=== PATIENT | female | born 1955 | race Caucasian/White ===

== ENCOUNTER → 2016-06-12 | Outpatient (CLI) | payer BC ==
--- NOTE | 2016-06-13 07:17 | US ---
EXAMINATION TYPE: US thyroid st tissue head/neck DATE OF EXAM: 06/12/2016 4:16 PM COMPARISON: US 2012 CLINICAL HISTORY: Thyroid nodules; on thyroid medication. GLAND SIZE: Right Lobe: 4.8 x 1.2 x 1.1cm Overall Parenchyma: heterogenous Left Lobe: 5.2 x 2.7 x 1.8cm Overall Parenchyma: heterogeneous Isthmus Thickness: 0.8cm NODULES RIGHT: # of nodules measured on right: 4 1. 1.1 x 0.7 x 0.7 cm isoechoic mixed nodule at the upper pole with poorly defined margins. This n odule is wider than tall and shows no intranodular vascularity. Prior size: 0.8 x 0.6 x 0.6 cm 2. 1.0 x 0.8 x 0.7 cm isoechoic mixed nodule at the mid pole with well-defined margins. This nodule is wider than tall and shows intranodular vascularity. Prior size: 0.9 x 0.6 x 0.7 cm 3. 1.0 x 0.5 x 0.5 cm hypoechoic mixed nodule at the mid lower pole with well-defined margins. This nodule is as wide as is tall and shows intranodular vascularity. Prior size: 0.7 x 0.4 x 0.7 cm 4. 0.8 x 0.9 x 0.4cm isoechoic mixed nodule at the right isthmus with well-defined margins. This nod ule is wider than tall and shows intranodular vascularity. Prior size: 0.7 x 0.4 x 0.7 cm LEFT: # of nodules measured on left: 3 largest of multiple 1. 1.7 x 1.5 x 1.5 cm hypoechoic mixed nodule at the upper pole with well-defined margins. This nod ule is wide as is tall and shows no intranodular vascularity. Prior size: 1.1 x 0.8 x 1.2 cm 2. 1.0 x 0.8 x 0.6 cm hypoechoic mixed nodule at the mid pole with well-defined margins. This nodule is wider than tall and shows no intranodular vascularity. Prior size: 0.8 x 0.5 x 0.8 cm 3. 1.3 x 1.11 x 1.09 cm hypoechoic mixed nodule at the lower pole with well-defined margins. This nod ule is wider than tall and shows no intranodular vascularity. Prior size: 01.3 x 1.1 x 1.0 cm ISTHMUS: # of nodules measured in the isthmus: 0 TECHNOLOGIST IMPRESSION: Bilateral neck scanned, no abnormal lymphadenopathy noted. Bilateral thyroi d nodules are present. IMPRESSION: Nonspecific thyroid nodularity as detailed above. SONOGRAPHIC PATTERNS, ESTIMATED MALIGNANCY RISK AND FNA GUIDANCE FOR THYROID NODULES Sonographic Pattern: Benign Ultrasound Features: Purely Cystic Nodules (No Solid Component) Estimated Risk Of Malignancy, %: <1 FNA Size Cutoff (Largest Dimension): No Biopsy Sonographic Pattern: Very Low Suspicion Ultrasound Features: Spongiform Or Partially Cystic Nodules Without Any Of The Sonographic Features Described In Low, Inte rmediate Or High Suspicion Patterns. Estimated Risk Of Malignancy, %: <3 FNA Size Cutoff (Largest Dimension): Recommend FNA At > 2cm Or Observation Without FNA Sonographic Pattern: Low Suspicion Ultrasound Features: Isoechoic Or Hyperechoic Solid Nodule, Or Partially Cystic Nodule With Eccentric Solid Areas, Without Microcalcification, Irregular Margin Or Ete, Or Taller Than Wide Shape. Estimated Risk Of Malignancy, %: 5-10 FNA Size Cutoff (Largest Dimension): Recommend FNA At > 1.5cm Sonographic Pattern: Intermediate Suspicion Ultrasound Features: Hypoechoic Solid Nodule With Smooth Margins Without Microcalcifications, Ete, Or Taller Than Wide Sha pe. Estimated Risk Of Malignancy, %: 10-20 FNA Size Cutoff (Largest Dimension): Recommend FNA At > 1cm Sonographic Pattern: High Suspicion Ultrasound Features: Solid Hypoechoic Nodule Or Solid Hypoechoic Component Of A Partially Cystic Nodule With One Or More O f The Following Features: Irregular Margins (Infiltrative, Microlobulated), Microcalcifications, Tall er Than Wide Shape, Rim Calcifications With Small Extrusive Soft Tissue Component, Evidence Of Ete Estimated Risk Of Malignancy, %: >70-90 FNA Size Cutoff (Largest Dimension): Recommend FNA At > 1cm
== END | disposition home or self-care (01) ==
LOC: RADUSWWP 15:40
PROVIDERS: ATTEND Otolaryngology
DX: E04.1 Nontoxic single thyroid nodule (principal)
CPT/HCPCS: 76536

== ENCOUNTER → 2016-11-28 | Outpatient (CLI) | payer BC ==
--- NOTE | 2016-11-29 12:59 | MM ---
Reason for exam: screening (asymptomatic). Last mammogram was performed 1 year ago. Physical Findings: A clinical breast exam by your physician is recommended on an annual basis and results should be correlated with mammographic findings. MG 3D Screening Mammo W/Cad Bilateral CC and MLO view(s) were taken. Prior study comparison: November 15, 2015, bilateral MG 3d screening mammo w/cad. November 12, 2006, workup left diagnostic mammogram. The breast tissue is heterogeneously dense. This may lower the sensitivity of mammography. Finding: There are few typically benign round, linear calcifications in the right breast. ASSESSMENT: Benign, BI-RAD 2 RECOMMENDATION: Routine screening mammogram of both breasts in 1 year.
== END | disposition home or self-care (01) ==
LOC: RADMAMWWP 09:08
PROVIDERS: ATTEND Internal Medicine Geriatric Medicine
DX: Z12.31 Encounter for screening mammogram for malignant neoplasm of breast (principal)
CPT/HCPCS: 77063; G0202

== ENCOUNTER → 2017-09-01 | Outpatient (CLI) | payer BC ==
--- NOTE | 2017-09-01 10:57 | XR ---
EXAMINATION TYPE: XR chest 2V DATE OF EXAM: 09/01/2017 COMPARISON: NONE TECHNIQUE: PA and lateral views submitted. HISTORY: Cough FINDINGS: The lungs are clear and there is no pneumothorax, pleural effusion, or focal pneumonia. Curvature t he spine noted. Hypertrophic and degenerative changes seen. Vascular calcifications noted. No overt f ailure. IMPRESSION: 1. No acute process.
== END | disposition home or self-care (01) ==
LOC: RADXRMAIN 10:38
PROVIDERS: ATTEND Internal Medicine Geriatric Medicine
DX: R05 Cough (principal)
CPT/HCPCS: 71046

== ENCOUNTER → 2022-09-10 | Outpatient (CLI) | payer BC ==
--- NOTE | 2022-09-10 11:37 | BD ---
EXAMINATION TYPE: Axial Bone Density DATE OF EXAM: 09/10/2022 CLINICAL HISTORY: 67 years old Female. ICD-10 CODE: M81.0 AGE RELATED OSTEOPOROSIS Height: 63.5in Weight: 121lb FRAX RISK QUESTIONS: History of Fracture in Adulthood: yes Secondary Osteoporosis: RISK FACTORS HISTORY OF: Family History of Osteoporosis: yes Active: yes Postmenopausal woman: yes MEDICATIONS: Thyroid Medications: Which medication: Synthroid How Long: about 29 years Additional Medications: calcium, vitamin d Additional History: EXAM MEASUREMENTS: Bone mineral densitometry was performed using the [employer]. Bone mineral density as measured about the Lumbar spine is: ----- L1-L4(G/cm2): 1.187 T Score Values are as follows: ----- L1: 0.4 ----- L2: -0.8 ----- L3: 0.6 ----- L4: -0.1 ----- L1-L4: 0.1 Z Score Values are as follows: ----- L1: 2.4 ----- L2: 1.2 ----- L3: 2.6 ----- L4: 1.9 ----- L1-L4: 2.1 Bone mineral density has: Decreased -0.6% since study of: 11-28-2015 Bone mineral density about the R hip (g/cm2): 0.842 Bone mineral density about the L hip (g/cm2): 0.774 T Score values are as follows: -----R Neck: -1.5 -----L Neck: -1.8 -----R Total: -1.3 -----L Total: -1.9 Z Score values are as follows: -----R Neck: 0.4 -----L Neck: 0.1 -----R Total: 0.3 -----L Total: -0.2 Bone mineral density has: Decreased -4.2% since study of: 11-28-2015 FRAX%s: The graph provided illustrates a 15.7% chance for a major osteoporotic fx and a 2.8% chance f or the hips probability for fx in 10 years time. IMPRESSION: Osteopenia (T Score between -2.5 and -1). There is slightly increased risk of fracture and the patient may be considered for treatment. Re-Screen 2-5 years. NOTE: T-SCORE=SD OF THE YOUNG ADULT MEAN.
--- NOTE | 2022-09-11 09:15 | MM ---
Reason for Exam: Screening (asymptomatic). Last mammogram was performed 2 year(s) and 6 month(s) ago. Patient History: Menarche at age 10. First Full-Term at age 19. Hysterectomy at age 52. Postmenopausal. Risk Values: Magali 5 year model risk: 1.5%. NCI Lifetime model risk: 4.8%. Prior Study Comparison: 11/12/2006 Left Diagnostic Mammogram, [facility]. 11/15/2015 Bilateral Screening Mammogram, [facility]. 11/28/2016 Bilateral Screening Mammogram, [facility]. 04/07/2020 Bilateral Screening Mammogram, [facility]. Tissue Density: There are scattered fibroglandular densities. Findings: Analyzed By CAD. Benign-appearing vascular and punctate calcifications bilaterally are redemonstrated. There is no suspicious new group of microcalcifications or new suspicious mass in either breast. Overall Assessment: Benign, BI-RAD 2 Management: Screening Mammogram of both breasts in 1 year. A clinical breast exam by your physician is recommended on an annual basis and results should be correlated with mammographic findings. Electronically signed and approved by: Satnam De La Cruz M.D.
== END | disposition home or self-care (01) ==
LOC: RADMAMWWP 10:07
PROVIDERS: ATTEND Internal Medicine Geriatric Medicine
DX: Z12.31 Encounter for screening mammogram for malignant neoplasm of breast (principal); M81.0 Age-related osteoporosis without current pathological fracture; M85.89 Other specified disorders of bone density and structure, multiple sites; Z78.0 Asymptomatic menopausal state
CPT/HCPCS: 77063; 77067; 77080